=== PATIENT | male | born 1965 | race Caucasian/White ===

== ENCOUNTER 2016-12-11 02:34 | Emergency (ER) | payer SELFPAY ==
[~2016-12-11] VITALS: Ht 185.4 cm; Wt 72.7 kg
[~2016-12-11 02:34] MED LIST: NOHOMEMEDS
[2016-12-11 03:19] LABS: BASOPHIL COUNT 0.1 K/uL (0-0.1); EOSINOPHIL COUNT 0.1 K/uL (0-0.3); HEMATOCRIT 43.4 % (38.0-50.0); IMMATURE GRANULOCYTE (%) 0.8 % (0.0-0.7); IMMATURE GRANULOCYTE COUNT 0.1 K/uL; INSTRUMENT ABS NEUTROPHIL CT 7.6 K/uL; LYMPHOCYTE COUNT 2.3 K/uL (1.0-2.8); MCH 32.6 PG (29.0-34.0); MCHC 35.3 G/DL (30.0-36.0); MCV 92.3 FL (86-99); MEAN PLAT.VOLUME 12.6 uM^3 (9.0-12.4); MONOCYTE (%) 8.7 % (3-12); NEUTROPHIL (%) 68.1 % (45-76); NEUTROPHIL COUNT 7.6 K/uL (1.8-6.4); PLATELET COUNT 150 K/uL (156-360); RBC DIS.WIDTH-CV 12.1 % (11.8-14.6); RBC DIS.WIDTH-SD 41.2 % (39-53); WHITE BLOOD COUNT 11.1 K/uL (4.1-10.2)
[2016-12-11 03:33] LABS: CHLORIDE 104 mEq/L (99-109); POTASSIUM 3.4 mEq/L (3.7-5.4); SODIUM 139 mEq/L (136-147)
[2016-12-11 03:35] LABS: GLUCOSE 92 mg/dL (70-99)
[2016-12-11 03:36] LABS: ANION GAP 12 MEQ/L (2-14)
[2016-12-11 03:39] LABS: GFR ESTIMATE (CALCULATED) 53 mL/min/; UREA NITROGEN (BUN) 22 mg/dL (9-23)
[2016-12-11 03:41] LABS: TROP-I INTERPRETATION NEGATIVE; TROPONIN-I < 0.01 ng/mL (0.0-0.30)
[2016-12-11 05:33] VITALS: BP 120/79
== END 2016-12-11 05:34 | disposition left against medical advice (07) ==
LOC: EME → EDBD 02:34 → EME 05:34
PROVIDERS: Emergency Medicine
DX: R07.9 Chest pain, unspecified (principal); I25.2 Old myocardial infarction; Z87.891 Personal history of nicotine dependence; Z88.8 Allergy status to other drugs, medicaments and biological substances
CPT/HCPCS: 71020; 80048; 84484; 85025; 93005; 99281; 99284